=== PATIENT | male | born 1980 | race Caucasian/White ===

== ENCOUNTER 2022-06-07 19:59 | Emergency (ER) | payer BC, SELFPAY ==
[2022-06-07] VITALS (11 sets, daily range): BP systolic 124–152; BP diastolic 82–90; PULSE 73–81; RESP 18; TEMP 37.1; O2SAT 97–100; BMI 25.1
[2022-06-07 20:17] LABS: Appearance Urine Clear (Clear); Bilirubin Urine Negative (Negative); Blood Urine Negative (Negative); Color Urine Yellow (Yellow); Glucose Urine Negative (Negative); Ketones Urine Trace (Negative); Leukocyte Esterase Urine Negative (Negative); Nitrite Urine Negative (Negative); Protein Urine Trace (Negative); Specific Gravity Urine >= 1.030 (1.000-1.030); Urobilinogen Urine 0.2 (0.2-1.0); pH Urine 5.5 (5.0-8.5)
--- NOTE | 2022-06-07 20:20 | ED.GENADULT ---
HPI - General Adult General Time Seen by Provider: 20:20 Date Seen: 06/07/22 Chief complaint: Flank Pain Stated complaint: Abdominal/pelvic pain Time Seen by Provider: 06/07/22 20:07 Source: patient and RN notes reviewed Mode of arrival: ambulatory Limitations: no limitations History of Present Illness HPI narrative: Patient is a 42-year-old male coming in with left-sided abdominal pain/pelvic pain. He felt more of a muscle type full earlier today but now it is wrapping into the left lower abdomen and feels like he needs to defecate but nothing is coming. He had a normal bowel movement earlier today. He has had no fevers or chills. He has a history of diverticulitis and has had a colonoscopy before. He believes the last episode of diverticulitis was within the last year but greater than 6 months ago. He last ate around noon, has not really noticed diminished appetite. No nausea or vomiting. He states baseline he will usually only eats once or twice a day any ways. No urinary symptoms. No history kidney stones. Pain is worsening which is what brought him in. MD complaint: Abdominal pain Related Data Previous Rx's Medication Instructions Recorded tamsulosin 0.4 mg capsule 0.4 mg PO DAILY #10 caps 06/07/22 Allergies Allergy/AdvReac Type Severity Reaction Status Date / Time amitriptyline Allergy rash/hives Verified 06/07/22 21:32 amoxicillin Allergy Hives Verified 06/07/22 21:32 gabapentin Allergy hives/rash Verified 06/07/22 21:32 nortriptyline Allergy rash/hives Verified 06/07/22 21:32 Penicillins Allergy rash Verified 06/07/22 21:32 Review of Systems Status of ROS: Reports: 10 or more systems reviewed and unremarkable except as noted in History and below PFSH PFS Social History Smoking Status: Former smoker Do you use any of these nicotine containing products: None Second hand tobacco smoke exposure: No How often do you have a drink containing alcohol: never How often do you have six or more drinks on one occasion: Never AUDIT-C Alcohol total score: 0 Non-prescribed substance use: denies use Exam Const: Vital Signs, click to edit/add: Vital Signs - 24 hr 06/07/22 20:04 06/07/22 20:35 06/07/22 20:41 Temperature 98.7 F Pulse Rate 74 Pulse Rate [Left P ulse Oximeter] 74 75 Respiratory Rate 18 Blood Pressure Blood Pressure [Ri ght Upper Arm] 152/85 H 139/90 H Pulse Oximetry 100 100 100 Oxygen Delivery Me thod Room Air Room Air 06/07/22 21:00 06/07/22 21:01 06/07/22 21:30 Temperature Pulse Rate 81 75 77 Pulse Rate [Left P ulse Oximeter] Respiratory Rate Blood Pressure 128/85 Blood Pressure [Ri ght Upper Arm] Pulse Oximetry 100 100 98 Oxygen Delivery Me thod 06/07/22 21:31 Temperature Pulse Rate 78 Pulse Rate [Left P ulse Oximeter] Respiratory Rate Blood Pressure 128/85 Blood Pressure [Ri ght Upper Arm] Pulse Oximetry 98 Oxygen Delivery Me thod Documenting provider has reviewed patient's vital signs: yes Common normals: no apparent distress, oriented x3, no limitations, healthy appearing, alert and well nourished General appearance: cooperative, comfortable and well kempt Nutritional appearance: thin HENMT: Common normals: normocephalic, head/scalp atraumatic, hearing grossly normal bilaterally, external ears normal, nasal mucous membranes and turbinates normal, moist oral mucous membranes, oropharynx normal, dentition normal and gingiva normal Head and scalp: normocephalic and atraumatic Nose: nasal mucous membranes and turbinates normal External ear: external ears normal Eye: Common normals: PERRL, EOMs intact bilaterally, conjunctivae normal and no scleral icterus Conjunctiva: conjunctiva(e) normal Pupil: PERRL Neck & C-Spine: Common normals: full ROM, no lymphadenopathy, supple, no meningeal signs, no JVD and thyroid normal Thyroid: thyroid normal Resp: Common normals: normal respiratory effort, no retractions, no use of accessory muscles and clear to auscultation bilaterally Auscultation: clear to auscultation bilaterally Cardio: Common normals: no JVD, regular rate, regular rhythm, S1 normal heart sound, S2 normal heart sound, no gallops, no clicks and no murmurs Rate: regular rate Rhythm: regular rhythm Heart sounds: S1 normal and S2 normal GI: Common normals: Normal to inspection, nondistended, normoactive bowel sounds present, soft to palpation, no hepatosplenomegaly and no masses Palpation: soft and no hepatosplenomegaly Other: Tender in his left lower quadrant with some mild guarding but no rebound, still overall soft. Does translate some into the suprapubic area. : Common normals: no CVA tenderness Bladder/kidney exam: no CVA tenderness Back & Pelvis: Common normals: no CVA tenderness Neuro: Common normals: oriented x3, CN's II-XII intact bilaterally, moves all extremities, no focal motor deficits, no sensory deficits noted and gait normal Sensorium/orientation: alert Meningeal signs: no meningeal signs Speech: speech normal Psych: Appearance: well kempt Course Course Hospital Course: Nursing Staff had appropriately collected urinalysis on his arrival. I see no evidence of hematuria in given his history and clinical exam, it more suspicious diverticulitis. We will give him 15 mg IV Toradol for pain control which he is in agreement with. He denies any need for nausea medicine. Will get basic labs and obtain a CT abdomen and pelvis with IV contrast. Reevaluation(s) Reevaluation #1: Reviewed with patient his CT showing a kidney stone. His pain is returning and will give another 15 mg IV Toradol for a total dosage of 30 mg here in the ER. He did drive himself and this way we can safely get him home with use of the Toradol. Discussed management and treatment of kidney stones. He will likely need some stronger pain medicines at home. Has tolerated oxycodone in the past. Did look him up on [place] prescribing website and he has had no prescriptions in the last year. Time: 22:06 Vital Signs Vital signs: Initial Vital Signs Temperature 98.7 F 06/07/22 20:04 Temperature Source Temporal Artery Scan 06/07/22 20:04 Pulse Rate 74 06/07/22 20:04 Respiratory Rate 18 06/07/22 20:04 Blood Pressure 152/85 H 06/07/22 20:04 Blood Pressure Mean 107 06/07/22 20:04 Blood Pressure Position Sitting 06/07/22 20:04 Pulse Oximetry 100 06/07/22 20:04 Oxygen Delivery Method 06/07/22 20:04 Vital Signs Temperature 98.7 F 06/07/22 20:04 Pulse Rate 74 06/07/22 20:04 Respiratory Rate 18 06/07/22 20:04 Blood Pressure 152/85 H 09/29/22 20:04 Pulse Oximetry 100 06/07/22 20:04 Oxygen Delivery Method 06/07/22 20:04 Temperature 98.7 F 06/07/22 20:04 Pulse Rate 78 06/07/22 21:31 Respiratory Rate 18 06/07/22 20:04 Blood Pressure 128/85 06/07/22 21:31 Pulse Oximetry 98 06/07/22 21:31 Oxygen Delivery Method 06/07/22 20:35 Medical Decision Making Lab Data Lab results reviewed: Yes I reviewed the patient's lab results Labs: Lab Results 06/07/22 06/07/22 06/07/22 Range/Units 20:10 20:15 20:15 WBC 3.53 L (4.50-11.00) K/uL RBC 4.55 (4.30-5.90) m/uL Hgb 13.1 L (13.5-17.5) gm/dL Hct 39.2 (37.0-53.0) % MCV 86 (80-100) fL MCH 29 (26-34) pg MCHC 33 (32-36) gm/dL RDW Coeff of Rajani 13.0 (11.5-15.5) % Plt Count 279 (140-440) K/uL Neut % (Auto) 48.1 (42.0-72.0) % Lymph % (Auto) 43.1 (20-44) % [place] % (Auto) 8.2 (0.0-11.0) % Eos % (Auto) 0.0 (0.0-7.0) % Baso % (Auto) 0.6 (0.0-3.0) % Neut # (Auto) 1.70 (1.7-7.0) K/uL Lymph # (Auto) 1.50 (0.90-2.90) K/uL [place] # (Auto) 0.30 (0.00-0.90) K/UL Eos # (Auto) 0.00 (0.00-0.50) K/uL Baso # (Auto) 0.00 (0.00-0.30) K/uL Abs Immat Gran (auto) 0.00 (0.00-0.30) K/uL Sodium 136 (135-149) mmol/L Potassium 3.4 L (3.6-5.1) mmol/L Chloride 101 (96-114) mmol/L Carbon Dioxide 25 (20-32) mmol/L BUN 14 (5-24) mg/dL Creatinine 1.0 (0.5-1.5) mg/dL Estimated Creat Clear 101.39 Estimated GFR 98 ml/min Glucose 123 H (60-115) mg/dL Lactate (0.5-1.9) mmol/L Calcium 8.9 (8.4-10.6) mg/dL Total Bilirubin 0.3 (0.1-1.5) mg/dL AST 23 (12-35) U/L ALT 13 (4-50) U/L Alkaline Phosphatase 73 (40-150) U/L C-Reactive Protein < 0.5 L (0.5-1.0) mg/dL Total Protein 7.2 (6.0-8.3) g/dL Albumin 4.8 (3.3-5.0) g/dL Urine Color Yellow (Yellow) Urine Appearance Clear (Clear) Urine pH 5.5 (5.0-8.5) Ur Specific [place] >= 1.030 (1.000-1.030) Urine Protein Trace A (Negative) Urine Glucose (UA) Negative (Negative) Urine Ketones Trace A (Negative) Urine Blood Negative (Negative) Urine Nitrite Negative (Negative) Urine Bilirubin Negative (Negative) Urine Urobilinogen 0.2 (0.2-1.0) Ur Leukocyte Esterase Negative (Negative) Urine RBC 0-2 (0-2) Urine WBC 0-2 (0-5) Ur Squamous Epith Cells Few (None-Few) Urine Bacteria None (None) 06/07/22 Range/Units 20:26 WBC (4.50-11.00) K/uL RBC (4.30-5.90) m/uL Hgb (13.5-17.5) gm/dL Hct (37.0-53.0) % MCV (80-100) fL MCH (26-34) pg MCHC (32-36) gm/dL RDW Coeff of Rajani (11.5-15.5) % Plt Count (140-440) K/uL Neut % (Auto) (42.0-72.0) % Lymph % (Auto) (20-44) % [place] % (Auto) (0.0-11.0) % Eos % (Auto) (0.0-7.0) % Baso % (Auto) (0.0-3.0) % Neut # (Auto) (1.7-7.0) K/uL Lymph # (Auto) (0.90-2.90) K/uL [place] # (Auto) (0.00-0.90) K/UL Eos # (Auto) (0.00-0.50) K/uL Baso # (Auto) (0.00-0.30) K/uL Abs Immat Gran (auto) (0.00-0.30) K/uL Sodium (135-149) mmol/L Potassium (3.6-5.1) mmol/L Chloride (96-114) mmol/L Carbon Dioxide (20-32) mmol/L BUN (5-24) mg/dL Creatinine (0.5-1.5) mg/dL Estimated Creat Clear Estimated GFR ml/min Glucose (60-115) mg/dL Lactate 1.1 (0.5-1.9) mmol/L Calcium (8.4-10.6) mg/dL Total Bilirubin (0.1-1.5) mg/dL AST (12-35) U/L ALT (4-50) U/L Alkaline Phosphatase (40-150) U/L C-Reactive Protein (0.5-1.0) mg/dL Total Protein (6.0-8.3) g/dL Albumin (3.3-5.0) g/dL Urine Color (Yellow) Urine Appearance (Clear) Urine pH (5.0-8.5) Ur Specific [place] (1.000-1.030) Urine Protein (Negative) Urine Glucose (UA) (Negative) Urine Ketones (Negative) Urine Blood (Negative) Urine Nitrite (Negative) Urine Bilirubin (Negative) Urine Urobilinogen (0.2-1.0) Ur Leukocyte Esterase (Negative) Urine RBC (0-2) Urine WBC (0-5) Ur Squamous Epith Cells (None-Few) Urine Bacteria (None) Imaging Data CT scan - abdomen: Attestation: I have reviewed the pertinent imaging results. Radiologist's impression: Patient: BRENDA MACHADO Facility:?[facility] Patient ID:?[id number] Site Patient ID:?[id number]. Site :?[id number] Study:?CT Abdomen/Pelvis W/85CC ISOVUE 370-06/07/2022 9:30:05 PM Ordering Physician:Tiffanie Wilder Final Report: INDICATION: Abdomen/pelvic pain. TECHNIQUE: CT abdomen and pelvis acquired with 85 mL Isovue 370 IV contrast. Coronal and sagittal reformats were generated. COMPARISON: None. FINDINGS: Lower chest: Unremarkable. Liver: Unremarkable. Gallbladder and bile ducts: Unremarkable. No stones or inflammation. No biliary dilation. Spleen: Unremarkable. Pancreas: Unremarkable. Adrenal glands: Unremarkable. No nodules. Kidneys and Ureters: A 3 mm calcification lies in the distal left ureter just proximal to the UVJ (2/136) and results in mild left hydronephrosis and a delayed nephrogram. Several calcifications are scattered throughout both kidneys. No right hydronephrosis. Lymph Nodes and Retroperitoneum: Unremarkable. Vasculature: Unremarkable. GI tract: Unremarkable. Normal in caliber. Normal appendix. Peritoneum/Abdominal Wall: Unremarkable. No mass or infiltration. No free air or free fluid. Pelvic Viscera: Unremarkable. Bladder: Unremarkable. Bones: Unremarkable for age. IMPRESSION: 1. Distal left ureteral stone results in mild left hydronephrosis and delayed nephrogram. 2. Nonobstructing right renal calculi. Please note that all CT scans at this facility use dose modulation, iterative reconstruction, and/or weight-based dosing when appropriate to reduce radiation dose to as low as reasonably achievable. Dictated by Humberto Steven MD @ 06/07/2022 9:37:48 PM (Electronic Signature) Critical Care Time Critical Care Time Critical Care Time: No Discharge Plan Discharge Clinical Impression: Kidney stone on left side Condition: Stable Instructions: Kidney Stones (ED), Renal Colic (ED), How to Strain Your Urine (ED) Additional Instructions: Strain urine, take stone to clinic if you do collected. Drink fluids for a goal of clear looking urine. Use Toradol baseline for pain management, 1 pill every 6 hours as needed, not to exceed 4 pills per day, 20 prescribed. If you have severe pain, can use oxycodone 5 mg 1 every 6 hours as needed, [address] or operate machinery on oxycodone. This can also be constipating, may need MiraLax and/or senna while you are on the oxycodone to avoid constipation. Can still use Tylenol with both of these medicines, follow bottle dosage instructions. If you develop fever, have severe uncontrolled pain or vomiting, need to seek re-evaluation. Otherwise, schedule a clinic follow-up with your primary care provider within the next week. Also would like you to take Flomax which helps dilate the urinary system, take daily until your stone has passed. Activity Level: Activity as Tolerated Discharge Diet: Regular Prescriptions: New tamsulosin 0.4 mg capsule 0.4 mg PO DAILY Qty: 10 0RF Stand Alone Forms: Tip or Skip Info Instructions
[2022-06-07 20:24] LABS: RBC Urine 0-2 (0-2); Squamous Epithelial Cell Urine Few (None-Few); WBC Urine 0-2 (0-5)
--- NOTE | 2022-06-07 20:25 | CRLHL7_ITS ---
For Patients: As a result of the Century Cures Act, medical imaging exams and procedure reports are released immediately into your electronic medical record. You may view this report before your referring provider. If you have questions, please contact your health care provider. INDICATION: Abdomen/pelvic pain. TECHNIQUE: CT abdomen and pelvis acquired with 85 mL Isovue 370 IV contrast. Coronal and sagittal reformats were generated. COMPARISON: None. FINDINGS: Lower chest: Unremarkable. Liver: Unremarkable. Gallbladder and bile ducts: Unremarkable. No stones or inflammation. No biliary dilation. Spleen: Unremarkable. Pancreas: Unremarkable. Adrenal glands: Unremarkable. No nodules. Kidneys and Ureters: A 3 mm calcification lies in the distal left ureter just proximal to the UVJ (2/136) and results in mild left hydronephrosis and a delayed nephrogram. Several calcifications are scattered throughout both kidneys. No right hydronephrosis. Lymph Nodes and Retroperitoneum: Unremarkable. Vasculature: Unremarkable. GI tract: Unremarkable. Normal in caliber. Normal appendix. Peritoneum/Abdominal Wall: Unremarkable. No mass or infiltration. No free air or free fluid. Pelvic Viscera: Unremarkable. Bladder: Unremarkable. Bones: Unremarkable for age. IMPRESSION: 1. Distal left ureteral stone results in mild left hydronephrosis and delayed nephrogram. 2. Nonobstructing right renal calculi. Please note that all CT scans at this facility use dose modulation, iterative reconstruction, and/or weight-based dosing when appropriate to reduce radiation dose to as low as reasonably achievable. Dictated by Humberto Steven MD @ 06/07/2022 9:37:48 PM (Electronically Signed)
[2022-06-07 20:30] LABS: Lactate* 1.1 mmol/L (0.5-1.9)
[2022-06-07] MEDS: KETOROLAC 15 MG/ML inj IVP ×2 (20:31→22:05)
[2022-06-07 20:33] LABS: Basophils Percent Auto 0.6 % (0.0-3.0); Hematocrit 39.2 % (37.0-53.0); Hemoglobin* 13.1 gm/dL (13.5-17.5); Lymphocytes Percent Auto 43.1 % (20-44); Mean Corpuscular HGB Conc 33 gm/dL (32-36); Mean Corpuscular Hemoglobin 29 pg (26-34); Mean Corpuscular Volume 86 fL (80-100); Monocytes Percent Auto 8.2 % (0.0-11.0); Neutrophils Percent Auto 48.1 % (42.0-72.0); Platelet Count* 279 K/uL (140-440); Red Blood Count 4.55 m/uL (4.30-5.90); White Blood Count* 3.53 K/uL (4.50-11.00)
[2022-06-07 20:35] LABS: Slide Review Reflex No
[2022-06-07 20:52] LABS: Blood Urea Nitrogen* 14 mg/dL (5-24); Carbon Dioxide* 25 mmol/L (20-32); Chloride* 101 mmol/L (96-114); Est. Creatinine Clearance* 101.39; Estimated Glomerular Filt Rate 98 ml/min; Potassium* 3.4 mmol/L (3.6-5.1); Sodium* 136 mmol/L (135-149)
[2022-06-07 20:53] LABS: Alanine Aminotransferase* 13 U/L (4-50); Albumin* 4.8 g/dL (3.3-5.0); Alkaline Phosphatase* 73 U/L (40-150); Aspartate Amino Transferase* 23 U/L (12-35); Bilirubin Total* 0.3 mg/dL (0.1-1.5); C Reactive Protein* < 0.5 mg/dL (0.5-1.0); Calcium* 8.9 mg/dL (8.4-10.6); Glucose* 123 mg/dL (60-115); Total Protein* 7.2 g/dL (6.0-8.3)
== END 2022-06-07 22:35 | disposition home or self-care (01) ==
PROVIDERS: Emergency Provider Family Medicine
DX: N20.0 Calculus of kidney (principal)
CPT/HCPCS: 36415; 74177; 80053; 81003; 81015; 83605; 85025; 86140; 96374; 96376; 99284; J1885; Q9967

== ENCOUNTER 2025-04-12 09:59 | Emergency (ER) | payer SELFPAY ==
[2025-04-12 10:10] VITALS: BP 149/84; PULSE 70; RESP 16; TEMP 36.3; O2SAT 100; BMI 25.8
[2025-04-12 10:26] VITALS: O2SAT 99
--- NOTE | 2025-04-12 10:30 | CRLHL7_ITS ---
For Patients: As a result of the Century Cures Act, medical imaging exams and procedure reports are released immediately into your electronic medical record. You may view this report before your referring provider. If you have questions, please contact your health care provider. INDICATION: .more prominent left sided pain, minimum right sided pain, suspect ureteral colic TECHNIQUE: CT abdomen and pelvis without contrast. COMPARISON: May 2022. FINDINGS: Lower chest: The visualized lower lungs are aerated. No pleural or pericardial effusion. ABDOMEN: Liver: Normal attenuation. Gallbladder and biliary: Normal gallbladder without radiopaque stone. Normal caliber bile ducts. Spleen: Normal size and attenuation. Pancreas: The noncontrast pancreas is homogeneous in attenuation without peripancreatic inflammatory changes or ductal dilatation. Adrenal glands: Normal adrenal glands. Kidneys and ureters: 1 millimeter nonobstructing inferior pole left renal stone. Mild left-sided hydroureteronephrosis secondary to a 1 millimeter stone in the UVJ. GI tract: The stomach is relatively decompressed. Normal caliber small and large bowel loops. Normal appendix. Vascular structures: Normal caliber abdominal aorta. Lymph nodes: No lymphadenopathy in the abdomen or pelvis by size criteria. Peritoneum: No free air, free fluid, or focal drainable fluid collection. PELVIS: Genitourinary system: Urinary bladder is decompressed. SKELETAL STRUCTURES AND SOFT TISSUES: No suspicious lytic or blastic lesions. IMPRESSION: Mild left-sided hydroureteronephrosis secondary to a 1 millimeter stone in the UVJ. 1 millimeter nonobstructing inferior pole left renal stone. Please note that all CT scans at this facility use dose modulation, iterative reconstruction, and/or weight-based dosing when appropriate to reduce radiation dose to as low as reasonably achievable. Dictated by Donald Paula MD @ 04/12/2025 11:19:02 AM (Electronically Signed)
[2025-04-12 10:56] LABS: Appearance Urine Clear (Clear)
[2025-04-12] MEDS: ONDANSETRON 2 MG/ML inj 4 MG IVP (11:11)
[2025-04-12 11:14] LABS: Hematocrit 43.1 % (37.0-53.0); Hemoglobin* 14.2 gm/dL (13.5-17.5); Immature Granulocytes Abs Auto 0.00 K/uL (0.00-0.30); Immature Granulocytes Pct Auto 0.0 %; Mean Corpuscular HGB Conc 33 gm/dL (32-36); Mean Corpuscular Hemoglobin 29 pg (26-34); Mean Corpuscular Volume 88 fL (80-100); RDW Coefficient of Variation % 13.0 % (11.5-15.5); Red Blood Count 4.91 m/uL (4.30-5.90); White Blood Count* 6.99 K/uL (4.50-11.00)
[2025-04-12 11:18] LABS: Lymphocytes Absolute Auto 0.80 K/uL (0.90-2.90); Slide Review Reflex No
[2025-04-12 11:24] LABS: Albumin* 4.7 g/dL (3.3-5.0); Chloride* 104 mmol/L (96-114)
[2025-04-12 11:25] LABS: Potassium* 4.0 mmol/L (3.6-5.1); Sodium* 137 mmol/L (135-149)
[2025-04-12 11:27] LABS: Anion Gap 10 mEq/L (7-15); Blood Urea Nitrogen* 18 mg/dL (5-24); Carbon Dioxide* 23 mmol/L (20-32); Creatinine* 1.5 mg/dL (0.5-1.5); Est. Creatinine Clearance* 66.24; Estimated Glomerular Filt Rate 59 ml/min
[2025-04-12 11:28] LABS: Alanine Aminotransferase* 16 U/L (4-50); Alkaline Phosphatase* 77 U/L (40-150); Aspartate Amino Transferase* 29 U/L (12-35); Bilirubin Direct* 0.1 mg/dL (0.0-0.5); Bilirubin Total* 0.4 mg/dL (0.1-1.5); Calcium* 9.2 mg/dL (8.4-10.6); Glucose* 107 mg/dL (60-115); Total Protein* 7.1 g/dL (6.0-8.3)
--- NOTE | 2025-04-12 11:52 | ED_ITS ---
HPI - Abdominal Pain General Date Seen: 04/12/25 Chief Complaint: Flank Pain Stated Complaint: thinks has a kidney stone Time Seen by Provider: 04/12/25 10:20 Source: patient Mode of arrival: ambulatory Limitations: no limitations History of Present Illness HPI narrative: Patient is a very nice gentleman who presents here with left-sided abdominal discomfort, the radiates down to his pelvis initially started his back and does radiate to his pelvis, he can not sit still, he feels like this may be a kidney stone that he had before, it feels like he almost test to go have a bowel movement. This will come up from sleep at approximately 3 in the morning and took 1 episode of Advil then. He is had no vomiting but feels nauseous, no fevers or chills denies any dysuria frequency or any blood in his urine, he remembers from previous CT scan that he did have some stones in his kidney on the left side. No other history of any surgeries, on no chronic medications, MD elicited complaint: abdominal pain Pertinent past history: kidney stones Onset (ago): hour(s) Pain Consistency: constant and colicky Location: LLQ, L flank, suprapubic and pelvis Severity: moderate Quality: cramping and stabbing Radiation: L flank Migration to: no migration Exacerbating factors: nothing Relieving factors: nothing Associated symptoms: nausea Treatments prior to arrival: NSAIDs Related Data Previous Rx's ?Medication ?Instructions ?Recorded ondansetron 4 mg disintegrating 4 mg PO TID PRN nausea and 04/12/25 tablet vomiting #10 tabs oxycodone-acetaminophen 5 mg-325 1 tab PO Q4-6H PRN pa in #14 tabs 04/12/25 mg tablet (Percocet) tamsulosin 0.4 mg capsule (Flomax) 0.4 mg PO DAILY #14 caps 04/12/25 Allergies Allergy/AdvReac Type Severity Reaction Status Date / Time amitriptyline Allergy rash/hives Verified 06/07/22 21:32 amoxicillin Allergy Hives Verified 06/07/22 21:32 gabapentin Allergy hives/rash Verified 06/07/22 21:32 nortriptyline Allergy rash/hives Verified 06/07/22 21:32 Penicillins Allergy rash Verified 06/07/22 21:32 Review of Systems Status of ROS Reports: 10 or more systems reviewed and unremarkable except as noted in History and below [facility] Medical History Kidney calculus ?N20.0 - Calculus of kidney (ICD-10) Social History Smoking Status: Former smoker Do you use any of these nicotine containing products: None Second hand tobacco smoke exposure: No How often do you have a drink containing alcohol: never How often do you have six or more drinks on one occasion: Never AUDIT-C Alcohol total score: 0 Non-prescribed substance use: denies use Exam Narrative: Exam Narrative: Patient is seen in room 5, he can sit still walking around the room pupils equal round reactive to light there is no scleral icterus redness is TMs are normal his oropharynx normal the neck is supple full range of motion chest is good air entry bilaterally no wheezing crackles noted heart sounds are normal, abdomen is soft, scaphoid there is no guarding no organomegaly bowel sounds are normal, circumcised male, no evidence of any hernias, normal testicles on examination and no other issues. Skin reveals no petechiae rashes, moves all extremities independently and well. Const: Vital Signs, click to edit/add: Vital Signs - 24 hr 04/12/25 10:10 04/12/25 10:26 Temperature 97.4 F L Pulse Rate [Pulse Oximeter] 70 Respiratory Rate 16 Blood Pressure [Ri ght Upper Arm] 149/84 H Pulse Oximetry 100 99 Oxygen Delivery Me thod Room Air Documenting provider has reviewed patient's vital signs: yes Course Course ED Course: Recheck of the patient's pain showed that he has in November in markedly improved he is able laying in his bed, at this point I reviewed with him the laboratory tests and CT findings, I think we can try outpatient at this point, I will give a prescription for some oxycodone, Zofran, and Flomax, follow-up will be if worsening signs and symptoms which we have gone over informed consent risks benefits and side effects of the medication interactions discussed in detail, he will return here as needed. Vital Signs Vital signs: Initial Vital Signs Temperature 97.4 F L 04/12/25 10:10 Temperature Source Temporal Artery Scan 04/12/25 10:10 Pulse Rate 70 04/12/25 10:10 Respiratory Rate 16 04/12/25 10:10 Blood Pressure 149/84 H 04/12/25 10:10 Blood Pressure Mean 105 04/12/25 10:10 Pulse Oximetry 100 04/12/25 10:10 Oxygen Delivery Method Room Air 04/12/25 10:10 Vital Signs Temperature 97.4 F L 04/12/25 10:10 Pulse Rate 70 04/12/25 10:10 Respiratory Rate 16 04/12/25 10:10 Blood Pressure 149/84 H 04/12/25 10:10 Pulse Oximetry 100 04/12/25 10:10 Oxygen Delivery Method Room Air 04/12/25 10:10 Temperature 97.4 F L 04/12/25 10:10 Pulse Rate 70 04/12/25 10:10 Respiratory Rate 16 04/12/25 10:10 Blood Pressure 149/84 H 04/12/25 10:10 Pulse Oximetry 99 04/12/25 10:26 Oxygen Delivery Method Room Air 04/12/25 10:10 Medications Administered Medications: Discontinued Medications Generic Name Dose Route Start Last Admin Trade Name Freq PRN Reason Stop Dose Admin Hydromorphone HCl 0.5 mg 04/12/25 10:26 04/12/25 11:11 Hydromorphone 0.5 Mg/0.5 Ml Inj IVP 04/12/25 10:27 0.5 mg ONCE ONE Administration Sodium Chloride 1,000 mls @ 1,000 mls/hr 04/12/25 10:30 04/12/25 11:37 0.9 % Sodium Chloride 1000 Ml IV 04/12/25 11:29 Infused .Q1H RABIA Infusion Ketorolac Tromethamine 30 mg 04/12/25 10:26 04/12/25 11:11 Ketorolac 30 Mg/Ml Inj IVP 04/12/25 10:27 30 mg ONCE ONE Administration Ondansetron HCl 4 mg 04/12/25 10:26 04/12/25 11:11 Ondansetron 2 Mg/Ml Inj IVP 04/12/25 10:27 4 mg ONCE ONE Administration MDM - Abdominal Pain MDM Narrative Medical decision making narrative: During this evaluation of this patient I considered multiple differential diagnosis is which included the life-threatening such as appendicitis, aortic aneurysm, mesenteric ischemia, bowel perforation, volvulus, and bowel obstruction. Other differential diagnosis is include but are not limited to cholecystitis, pancreatitis, hepatitis, gastritis, GERD, diverticulitis, peptic ulcer disease, pyelonephritis/UTI, renal colic/stone, testicular torsion as well as other acute scrotal processes, inflammatory bowel disease, as well as other etiologies Medical Records Attestation: I reviewed the patient's medical records. Lab Data Attestation: I reviewed the patient's lab results. Labs: Lab Results 04/12/25 04/12/25 Range/Units 10:40 11:00 WBC 6.99 (4.50-11.00) K/uL RBC 4.91 (4.30-5.90) m/uL Hgb 14.2 (13.5-17.5) gm/dL Hct 43.1 (37.0-53.0) % MCV 88 (80-100) fL MCH 29 (26-34) pg MCHC 33 (32-36) gm/dL RDW Coeff of Rajani 13.0 (11.5-15.5) % Plt Count 273 (140-440) K/uL Neut % (Auto) 80.6 H (42.0-72.0) % Lymph % (Auto) 11.0 L (20-44) % [place] % (Auto) 8.0 (0.0-11.0) % Eos % (Auto) 0.0 (0.0-7.0) % Baso % (Auto) 0.4 (0.0-3.0) % Neut # (Auto) 5.60 (1.7-7.0) K/uL Lymph # (Auto) 0.80 L (0.90-2.90) K/uL [place] # (Auto) 0.60 (0.00-0.90) K/UL Eos # (Auto) 0.00 (0.00-0.50) K/uL Baso # (Auto) 0.03 (0.00-0.30) K/uL Abs Immat Gran (auto) 0.00 (0.00-0.30) K/uL Imm/Tot Granulo (auto) 0.0 % Sodium 137 (135-149) mmol/L Potassium 4.0 (3.6-5.1) mmol/L Chloride 104 (96-114) mmol/L Carbon Dioxide 23 (20-32) mmol/L Anion Gap 10 (7-15) mEq/L BUN 18 (5-24) mg/dL Creatinine 1.5 (0.5-1.5) mg/dL Estimated Creat Clear 66.24 Estimated GFR 59 ml/min Glucose 107 (60-115) mg/dL Calcium 9.2 (8.4-10.6) mg/dL Total Bilirubin 0.4 (0.1-1.5) mg/dL Direct Bilirubin 0.1 (0.0-0.5) mg/dL AST 29 (12-35) U/L ALT 16 (4-50) U/L Alkaline Phosphatase 77 (40-150) U/L Total Protein 7.1 (6.0-8.3) g/dL Albumin 4.7 (3.3-5.0) g/dL Amylase 66 (18-89) U/L Lipase 66 (23-300) U/L Urine Color Yellow (Yellow) Urine Appearance Clear (Clear) Urine pH 5.5 (5.0-8.5) Ur Specific [place] >= 1.030 (1.000-1.030) Urine Protein 1+ A (Negative) Urine Glucose (UA) Negative (Negative) Urine Ketones Negative (Negative) Urine Blood Negative (Negative) Urine Nitrite Negative (Negative) Urine Bilirubin Negative (Negative) Urine Urobilinogen 0.2 (0.2-1.0) Ur Leukocyte Esterase Negative (Negative) Urine RBC 0-2 (0-2) Urine WBC 0-2 (0-5) Ur Squamous Epith Cells None (None-Few) Urine Bacteria None (None) Imaging Data CT scan - abdomen: Attestation: I have reviewed the pertinent imaging results. My impression: Mild hydronephrosis left-sided UVJ stone, with 1 other he ER visit on the left side small also. Radiologist's impression: [place] [id number] Diagnostic Imaging Report Patient: Darrel Son MR#: [id number] : 1980 Acct:[id number] Loc: ED Service Date: 04/12/[address]: Ordering Physician: Salo Maza M.D. Date of Service: 04/12/25 Procedure(s): CT abdomen pelvis wo con Accession Number(s): [id number] cc: Provider,Not a Local; Salo Maza M.D.~ For Patients: As a result of the 21st Century Cures Act, medical imaging exams and procedure reports are released immediately into your electronic medical record. You may view this report before your referring provider. If you have questions, please contact your health care provider. INDICATION: .more prominent left sided pain, minimum right sided pain, suspect ureteral colic TECHNIQUE: CT abdomen and pelvis without contrast. COMPARISON: May 2022. FINDINGS: Lower chest: The visualized lower lungs are aerated. No pleural or pericardial effusion. ABDOMEN: Liver: Normal attenuation. Gallbladder and biliary: Normal gallbladder without radiopaque stone. Normal caliber bile ducts. Spleen: Normal size and attenuation. Pancreas: The noncontrast pancreas is homogeneous in attenuation without peripancreatic inflammatory changes or ductal dilatation. Adrenal glands: Normal adrenal glands. Kidneys and ureters: 1 millimeter nonobstructing inferior pole left renal stone. Mild left-sided hydroureteronephrosis secondary to a 1 millimeter stone in the UVJ. GI tract: The stomach is relatively decompressed. Normal caliber small and large bowel loops. Normal appendix. Vascular structures: Normal caliber abdominal aorta. Lymph nodes: No lymphadenopathy in the abdomen or pelvis by size criteria. Peritoneum: No free air, free fluid, or focal drainable fluid collection. PELVIS: Genitourinary system: Urinary bladder is decompressed. SKELETAL STRUCTURES AND SOFT TISSUES: No suspicious lytic or blastic lesions. IMPRESSION: Mild left-sided hydroureteronephrosis secondary to a 1 millimeter stone in the UVJ. 1 millimeter nonobstructing inferior pole left renal stone. Please note that all CT scans at this facility use dose modulation, iterative reconstruction, and/or weight-based dosing when appropriate to reduce radiation dose to as low as reasonably achievable. Dictated by Donald Paula MD @ 04/12/2025 11:19:02 AM (Electronically Signed) Discharge Plan Discharge Clinical Impression: Urolithiasis, Renal colic on left side Patient Disposition: Home w/ Parent or Adult Condition: Improved Instructions: Renal Colic (ED) Additional Instructions: Home, rest, medications as directed, use of ibuprofen is a 1. Medication for this. Please use 800 mg 3 times a day for the next 3 days, Zofran can be used for nausea, Percocet for breakthrough pain. We use to tell people to strain the urine but we stop doing this, Flomax, is also use to help the stone come out. This can make you slightly lightheaded so drink lots of fluids. The Zofran in the Percocet both are very constipating so please use stool softeners with this. Increasing abdominal pain fevers chills nausea vomiting or intractable pain not relieved by your current regimes, then you should come back to the emergency room. Activity Level: Light activity Prescriptions: New tamsulosin [Flomax] 0.4 mg capsule 0.4 mg PO DAILY Qty: 14 0RF Rx Instructions: Take 1 tablet daily, this promotes the stone for coming out, you may stop this after you have no abdominal pain. oxycodone-acetaminophen [Percocet] 5-325 mg tablet 1 tab PO Q4-6H PRN (Reason: pain) Qty: 14 0RF Rx Instructions: Use with the ibuprofen for abdominal pain, do not combine with alcohol, can be very constipating. No other Tylenol while you are taking the Percocet, as there is acetaminophen in there. ondansetron 4 mg tablet,disintegrating 4 mg PO TID PRN (Reason: nausea and vomiting) Qty: 10 0RF Follow Up/Referrals: Provider,Not a Local [Primary Care Provider, Family Practice] Stand Alone Forms: [employer] Info Instructions
== END 2025-04-12 11:51 | disposition home or self-care (01) ==
PROVIDERS: Emergency Provider Family Medicine
DX: N20.9 Urinary calculus, unspecified (principal); N23 Unspecified renal colic
CPT/HCPCS: 36415; 74176; 80048; 80076; 81001; 82150; 83690; 85025; 94761; 96374; 96375; 99284; J1171; J1885; J2405; J7030

== ENCOUNTER 2025-04-22 19:22 | Emergency (ER) | payer OTHER, SELFPAY ==
[2025-04-22 19:30] VITALS: BP 164/76; PULSE 108; RESP 20; TEMP 36.6; O2SAT 98; BMI 27.0
--- NOTE | 2025-04-22 19:49 | ED_ITS ---
HPI - General Adult General Time Seen by Provider: 19:49 Date Seen: 04/22/25 Chief complaint: Laceration/Wound Stated complaint: L index finger lac Time Seen by Provider: 04/22/25 19:49 Source: patient Mode of arrival: ambulatory Limitations: no limitations History of Present Illness HPI narrative: Darrel is a 44 year old male with history of kidney stones presents to the ED via private car and self with a finger laceration. Patient is right hand dominant. Patient states he was in the garage with his son grinding a old horseshoe that they found when he cut the left index finger on a shot grinder operator. Bleeding was controlled at home, he did soak the area under water for while, he did have full range of motion. He feels he is up-to-date on his immunizations. Patient denies any distal numbness or tingling. Patient had been doing well otherwise. Related Data Allergies Allergy/AdvReac Type Severity Reaction Status Date / Time amitriptyline Allergy rash/hives Verified 04/22/25 19:29 amoxicillin Allergy Hives Verified 04/22/25 19:29 gabapentin Allergy hives/rash Verified 04/22/25 19:29 nortriptyline Allergy rash/hives Verified 04/22/25 19:29 Penicillins Allergy rash Verified 04/22/25 19:29 Review of Systems Status of ROS: Reports: 10 or more systems reviewed and unremarkable except as noted in History and below [facility] Medical History Kidney calculus ?N20.0 - Calculus of kidney (ICD-10) Social History Smoking Status: Former smoker Do you use any of these nicotine containing products: None Second hand tobacco smoke exposure: No How often do you have a drink containing alcohol: never How often do you have six or more drinks on one occasion: Never AUDIT-C Alcohol total score: 0 Non-prescribed substance use: denies use Exam Narrative: Exam Narrative: General: No obvious distress sitting comfortably HEENT: Pupils equal round reactive to light, extra ocular mm intact Lungs: Pulmonary effort normal Heart: Normal sinus rhythm Muscle skeletal: Left hand: Proximal index finger on the radial side, 1.5 cm laceration, patient can actively extend and flex the MCP, PIP and DIP, CMS intact. Const: Vital Signs, click to edit/add: Vital Signs - 24 hr 04/22/25 19:30 Temperature 97.9 F Pulse Rate [Pulse Oximeter] 108 H Respiratory Rate 20 Blood Pressure [Ri ght Upper Arm] 164/76 H Pulse Oximetry 98 Oxygen Delivery Me thod Room Air Course Course ED Course: 8:00 PM: aidet performed, vitals are normal at this time, workup will include laceration repair. Please see procedure note. Patient's last tetanus was 2021. Differential includes laceration, dislocation, fracture, sprain, contusion, vascular damage, nerve damage, ligament damage, tendon damage as well as other etiologies. Reevaluation(s) Time of Reevaluation #1: 20:27 Reevaluation #1: Laceration repair complete. Will plan to discharge, he will have sutures removed in the next 7-10 days. Vital Signs Vital signs: Initial Vital Signs Temperature 97.9 F 04/22/25 19:30 Temperature Source Temporal Artery Scan 04/22/25 19:30 Pulse Rate 108 H 04/22/25 19:30 Respiratory Rate 20 04/22/25 19:30 Blood Pressure 164/76 H 04/22/25 19:30 Blood Pressure Mean 105 04/22/25 19:30 Pulse Oximetry 98 04/22/25 19:30 Oxygen Delivery Method Room Air 04/22/25 19:30 Vital Signs Temperature 97.9 F 04/22/25 19:30 Pulse Rate 108 H 04/22/25 19:30 Respiratory Rate 20 04/22/25 19:30 Blood Pressure 164/76 H 04/22/25 19:30 Pulse Oximetry 98 04/22/25 19:30 Oxygen Delivery Method Room Air 04/22/25 19:30 Temperature 97.9 F 04/22/25 19:30 Pulse Rate 108 H 04/22/25 19:30 Respiratory Rate 20 04/22/25 19:30 Blood Pressure 164/76 H 04/22/25 19:30 Pulse Oximetry 98 04/22/25 19:30 Oxygen Delivery Method Room Air 04/22/25 19:30 Discharge Plan Discharge Clinical Impression: Laceration of index finger Patient Disposition: Home, Self-Care Condition: Improved Instructions: Finger Laceration (ED) Additional Instructions: Clean with soap and water, bacitracin to the area, suture removal in 7-10 days at Urgent Care or same-day clinic or primary care provider. Activity Level: No Restrictions Discharge Diet: Regular Follow Up/Referrals: Provider,Not a Local [Primary Care Provider, Family Practice] Stand Alone Forms: [employer] [email or web address] Info Instructions Procedures Laceration Laceration 1: Pre procedure diagnosis: Finger laceration Post procedure diagnosis: Finger laceration Written consent by: patient Verification/time out: correct patient Name of person performing procedure: Ronal Pisano Site: hand (Left index finger) Side (If applicable): left Size (cm): 2 Description: linear Local Anesthetic: bupivacaine 0.25% Amount of anesthesia used (mL): 2 Skin layer closed with: nylon Size (cm): 4-0 Number of sutures: 4 Technique: simple, interrupted Conclusion: patient tolerated procedure
[2025-04-22 20:41] VITALS: PULSE 80; RESP 18
== END 2025-04-22 20:43 | disposition home or self-care (01) ==
LOC: ED 20:34
PROVIDERS: Emergency Provider Student in an Organized Health Care Education/Training Program
DX: S61.211A Laceration without foreign body of left index finger without damage to nail, initial encounter (principal); W29.8XXA Contact with other powered hand tools and household machinery, initial encounter; Y92.015 Private garage of single-family (private) house as the place of occurrence of the external cause
CPT/HCPCS: 12001; 99283; 99284